=== PATIENT | female | born 1980 | race Caucasian/White ===

== ENCOUNTER 2019-11-12 22:57 | Emergency (ER) | payer SELFPAY ==
[~2019-11-12] VITALS: Ht 167.6 cm; Wt 65.3 kg
[2019-11-12 23:03] VITALS: BP 101/64
--- NOTE | 2019-11-12 23:03 | NUR ---
PT TAKEN TO BED 02 VIA [facility].
[2019-11-12] MEDS ORDERED: LORazepam 1 MG TAB PO ONE (23:15)
--- NOTE | 2019-11-12 23:30 | NUR ---
PT RESTING, NO SIGNS OF DISTRESS NOTED, PT REMAINS ON HER CELL PHONE WITH HER SINCE HER ARRIVAL TO ER.
[2019-11-13 00:03] VITALS: BP 101/64
== END 2019-11-13 | disposition home or self-care (01) ==
LOC: MED 22:57
DX: F41.9 Anxiety disorder, unspecified (principal)
CPT/HCPCS: 99283